=== PATIENT | female | born 1980 ===

== ENCOUNTER → 2022-01-14 12:19 | Outpatient (CLI) | payer OTHER, SELFPAY ==
--- NOTE | ~2022-01-14 | MR_ITS ---
EXAMINATION: MR knee RT wo con DATE: 01/14/2022 13:03 INDICATION: Chronic right knee pain TECHNIQUE: Magnetic resonance imaging (MRI) of the right knee was performed without intravenous contr ast. Sequences included coronal PD-weighted FSE, coronal PD-weighted FS FSE, sagittal T2-weighted FS E, sagittal PD-weighted FS FSE and axial PD weighted fat saturated FSE. COMPARISON: None. FINDINGS: Medial compartment: Likely mucoid degeneration at the posterior horn of the medial meniscus where there is increased intr asubstance increased signal which does not contact the articular surface to suggest meniscal tear. Sa gittally oriented bandlike region of partial-thickness chondral ulceration involving greater than 50% the cartilage thickness along the anterior to central weightbearing medial femoral condyle but witho ut degenerative subchondral changes. Articular cartilage is normal. Lateral compartment: Lateral meniscus is normal. Additional small region of less severe partial-thickness chondral ulcerat ion and fissuring at the anterior weightbearing lateral femoral condyle, also without degenerative jimenez bchondral changes. Patellofemoral compartment: Deep ulceration and fissuring along the lateral patellar facet with underlying cortical irregularity with subarticular increased marrow signal and cystlike changes. Additional partial thickness chondral fissuring without degenerative subchondral changes at the patellar apical ridge and medial facet. De ep chondral fissure at the superolateral aspect of the medial trochlea. Ligaments and tendons: Anterior and posterior cruciate ligaments are normal. The medial collateral ligament and fibular lamine ateral ligament complex are normal. The extensor mechanism is normal. The visualized medial and later al hamstring tendons as well as the iliotibial band are normal. Fluid: Moderate-sized right knee joint effusion. No loose osteochondral bodies identified. Osseous/other: Indeterminate 9 mm lesion at the lateral epicondyle of the distal femur with low signal intensity on both T1 and T2-weighted images, most likely a bone island. Otherwise normal marrow signal. No fractur e or pathologic marrow replacing process. IMPRESSION: 1. 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 2. Moderate-sized right knee joint effusion. 3. 9 mm lesion at the lateral femoral epicondyle with both low T1 and T2 signal, most likely bone isl and but would recommend correlation with radiographs. Reviewed, dictated and finalized at location A. [facility] [employer] SERVICE PROVIDER IMPRESSION: 1. 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 2. Moderate-sized right knee joint effusion. 3. 9 mm lesion at the lateral femoral epicondyle with both low T1 and T2 signal , most likely bone island but would recommend correlation with radiographs.
== END ==
PROVIDERS: Visit Provider Orthopaedic Surgery
DX: M17.11 Unilateral primary osteoarthritis, right knee (principal); M25.461 Effusion, right knee
CPT/HCPCS: 73721